=== PATIENT | male | born 1945 | race Caucasian/White ===

== ENCOUNTER 2017-11-05 07:33 | Outpatient (CLI) | payer OTHER | END 2017-11-05 07:44 | disposition home or self-care (01) | LOC: TOM 07:33 | DX: K63.5 Polyp of colon (principal) ==

== ENCOUNTER 2019-05-04 05:15 | Day surgery (SDC) | payer OTHER ==
[~2019-05-04 05:15] MED LIST: ECOTRIN81 MG PO; GLYCOTROL CAPS1 EACH PO; JANUMET 50-5001 EACH PO; LOSARTAN-HCTZ1 EAC1 PO; SIMVASTATIN5 MG PO; TAMS0.4C PO; VITAMIN E400 UNI7 PO
[2019-05-04] MEDS ORDERED: TYLENOL ARTHRI650 MG PO (10:30)
[2019-05-04] MEDS ORDERED: MIRALAX17 GM PO (10:30)
[2019-05-04] MEDS ORDERED: ULTRAM50 MG PO (10:30)
== END 2019-05-04 15:00 | disposition home or self-care (01) ==
LOC: CIR.AMB 05:15
DX: K40.90 Unilateral inguinal hernia, without obstruction or gangrene, not specified as recurrent (principal); K42.9 Umbilical hernia without obstruction or gangrene

== ENCOUNTER 2019-06-23 07:51 | Outpatient (CLI) | payer OTHER ==
[~2019-06-23 07:51] MED LIST changes: +MIRALAX17 GM PO; +TYLENOL ARTHRI650 MG PO; +ULTRAM50 MG PO
== END 2019-06-23 08:50 | disposition home or self-care (01) ==
LOC: NUCLEAR 07:51
DX: C61 Malignant neoplasm of prostate (principal); N40.0 Benign prostatic hyperplasia without lower urinary tract symptoms; N20.0 Calculus of kidney
CPT/HCPCS: 78803; A9503

== ENCOUNTER → 2024-06-27 | Emergency (ER) | payer OTHER | END | disposition home or self-care (01) | LOC: ER 13:27 | DX: F03.90 Unspecified dementia, unspecified severity, without behavioral disturbance, psychotic disturbance, mood disturbance, and anxiety (principal); G25.2 Other specified forms of tremor; I10 Essential (primary) hypertension; E11.9 Type 2 diabetes mellitus without complications ==